=== PATIENT | male | born 1960 | race African-American/Black ===

== ENCOUNTER 2020-04-26 14:25 | Emergency (ER) | payer OTHER ==
[~2020-04-26] VITALS: Ht 165.1 cm; Wt 72.6 kg
[~2020-04-26 14:25] MED LIST: CATAFLAM50 MG PO
== END 2020-04-26 18:05 | disposition home or self-care (01) ==
LOC: ER 14:25
DX: S00.212A Abrasion of left eyelid and periocular area, initial encounter (principal); X58.XXXA Exposure to other specified factors, initial encounter; Y93.89 Activity, other specified; Y92.89 Other specified places as the place of occurrence of the external cause; Y99.8 Other external cause status